=== PATIENT | male | born 1980 | race Caucasian/White ===

== ENCOUNTER 2023-01-13 01:53 | Emergency (ER) | payer BC, SELFPAY ==
[2023-01-13 01:54] VITALS: BP 122/78; PULSE 66; RESP 13; TEMP 36.4; O2SAT 100; BMI 23.1
--- NOTE | 2023-01-13 02:02 | EDS_ITS ---
HPI History of Present Illness Chief Complaint: General Illness [facility] Home Medications NK 01/13/23 [History Last Taken Unknown] Allergy/AdvReac Type Severity Reaction Status Date / Time No Known Allergies Allergy Verified 01/13/23 01:54 Social History Smoking Status: Current every day smoker tobacco type: smokeless tobacco EXAM Physical Exam Const Vital Signs: 01/13/23 01:54 01/13/23 01:57 01/13/23 02:21 Temperature 97.6 F L Temperature Source Oral Pulse Rate 66 Respiratory Rate 13 Respiratory Effort Normal Non-Labored Respiratory Pattern Normal Blood Pressure 122/78 H Blood Pressure Mean 92 Pulse Ox 100 96 Oxygen Delivery Method Room Air Room Air MDM MDM MDM Narrative Medical decision making narrative: HISTORY OF PRESENT ILLNESS: 42-year-old male here with cute onset of dizziness lightheadedness just prior to arrival. Notes he felt dizzy sweaty felt numbness in bilateral upper extremities as well as a tight throat. He notes he got up to use the bathroom. States he was in the act of performing a bowel movement when he got lightheaded dizzy started feeling sweaty and shaky. This was transient and has since resolved. He denies any focal weakness. Denies any current chest pain or shortness of breath. Denies any bleeding diathesis or volume loss such as vomiting or diarrhea. The patient denies recent surgery in the last 4 weeks or immobilization in the last 3 days, denies previous diagnosis of DVT or PE, hemoptysis, unilateral leg swelling or malignancy with treatment the last 6 months. No estrogen use noted. Patient denies sudden onset of pain, no tearing sensation, no migratory symptoms, no new numbness, weakness or loss of sens ation. Patient denies family history or personal history of Connective tissue disorders (Marfan's Syndrome, David Danlos etc) REVIEW OF SYSTEMS: Pertinent positives: Dizziness, lightheadedness, numbness Pertinent negatives: Focal weakness PHYSICAL EXAM: Nursing triage notes reviewed, Vital signs reviewed Constitutional: please see mdm HENT: MMM Eyes: Pupils equal round and reactive to light, Extraocular muscles intact Neck: No stridor, no JVD, full neck ROM Lungs: Clear to auscultation, No wheezing or rales. No increased work of breathing, no conversational dyspnea, no accessory muscle use, no nasal flaring. No respiratory distress noted Heart: Regular rate and rhythm, No murmurs, No rubs and No gallops, 2+ distal pulses (radial, femoral, posterior tibial) in all extremities Abdomen: Soft, there is no tenderness, rigidity, rebound or guarding, no obvious peritoneal signs, no palpable pulsatile abdominal masses, no auscultated abdominal bruit : No CVAT Extremities: No edema Neuro: Alert and oriented x3, neuro exam at baseline, cranial nerves II through XII are intact. No pain with extraocular muscle movement. There is negative test of skew. Normal speech. 5 of 5 strength in upper and lower extremities in flexion extension. Intact sensation to light touch in upper and lower extremity dermatomes. No truncal or extremity ataxia. No dysdiadochokinesia. Normal gait. 2+ reflexes. No meningeal signs. Negative Babinski. NIH of 0 Skin: No rash or lesions noted MEDICAL DECISION MAKING: Chief Complaint: Dizziness External records reviewed: No recent ED visits Factors affecting care: none Social determinants of health: none History obtained from others: none Consults: none ALL IMAGES (IF OBTAINED) HAVE BEEN PERSONALLY REVIEWED AND INTERPRETED BY MYSELF. EKG with normal sinus rhythm, normal axis, normal intervals, no STEMI Chest x-ray was read and reviewed by myself shows no evidence of pneumothorax, pneumonia or other cardiopulmonary abnormality. CBC without leukocytosis, severe anemia, no thrombocytopenia. BMP without evidence of significant electrolyte abnormalities, no anion gap, no acute kidney injury. Troponin negative x2 MDM Narrative: Patient was hemodynamically stable, afebrile, nontoxic-appearing. I considered the following differential diagnosis: Vasovagal syncope, arrhythmia, anemia, ACS, PE, dissection Clinical history most consistent with vasovagal syncope. I did obtain an EKG and labs to rule out other causes of significant decreased perfusion such as anemia, electrolyte abnormalities ACS or arrhythmia. EKG, high-sensitivity troponins (x2) were negative for evidence of myocardial ischemia. There is no significant anemia or electrolyte abnormalities. The patient likely suffered a vasovagal event. Given strict return precautions and follow-up instructions. The patient and/or family, caregivers express understanding. The patient and/or family, caregivers agrees with the plan. Shared decision making: I will have a discussion with the patient and or visitors regarding risk/benefits of further testing or admission. They will be made aware of of the risk/benefits inherent in this decision they will be given the opportunity to voice understanding. Total critical care time today provided was at least 0 [] minutes. This excludes separately billable procedures. Critical care time (if documented) is secondary to the patient having high probability of clinically significant/life threatening deterioration in the patient's condition which required my urgent intervention. Impression: 1. Near syncope 2. Vagal reaction Dispo: disCharge Lab Data Labs: Laboratory Results - last 24 hr 01/13/23 01/13/23 02:00 04:55 WBC 7.3 RBC 4.59 L Hgb 14.4 Hct 42.6 MCV 92.8 MCH 31.4 MCHC 33.8 RDW Std Deviation 40.8 RDW Coeff of Shane 11.9 Plt Count 238 MPV 9.3 Immature Gran % (Auto) 0.300 Neut % (Auto) 44.0 L Lymph % (Auto) 37.8 [place] % (Auto) 11.9 H Eos % (Auto) 5.2 H Baso % (Auto) 0.8 Absolute Neuts (auto) 3.2 Absolute Lymphs (auto) 2.76 Nucleated RBC % 0 Sodium 139 Potassium 3.7 Chloride 105 Carbon Dioxide 26.0 Anion Gap 8 BUN 15 Creatinine 1.38 H Estim Creat Clear Calc 81.30 Est GFR (MDRD) Af Amer 73 Est GFR (MDRD) Non-Af 60 BUN/Creatinine Ratio 10.9 Glucose 113 H Calcium 9.3 Troponin I High Sens < 3 L < 3 L Radiography Diagnostic Testing: Clinical Impression(s) from Imaging Studies Chest X-Ray 01/13/23 02:21 IMPRESSION: COPD Electronically Signed: Dann Torres MD at 3:30 EDT , Discharge Plan Triage Chief Complaint: General Illness ED Provider: Rick Lopez Dx/Rx/DC Orders Prescriptions: No Action NK Primary Care Provider: Care Physician,No Primary Referrals: [facility] Doctor,Out of [Non-Staff] -
[2023-01-13 02:21] VITALS: O2SAT 96
--- NOTE | 2023-01-13 02:21 | RAD_ITS ---
INDICATION: chest pain EXAMINATION/TECHNIQUE: X-RAY - XR Chest 1 View COMPARISON: None. FINDINGS: LINES/DEVICES: None. LUNGS: Hyperexpanded lungs. No pulmonary edema or focal airspace consolidation. No sizable pleural effusion. No pneumothorax detected. MEDIASTINUM AND CARDIOVASCULAR STRUCTURES: Heart size within normal limits. Mediastinal contours unremarkable. BONES AND SOFT TISSUES: No acute findings. RAD/Chest 1 View (Portable) IMPRESSION: COPD Electronically Signed: Dann Torres MD at 3:30 EDT ,
--- NOTE | 2023-01-13 02:21 | EKG12_ITS ---
Test Reason : DYSRHYTHMIA Blood Pressure : / mmHG Vent. Rate : 060 BPM Atrial Rate : 060 BPM P-R Int : 164 ms QRS Dur : 094 ms QT Int : 406 ms P-R-T Axes : 069 090 073 degrees QTc Int : 406 ms Normal sinus rhythm Rightward axis Borderline ECG Confirmed by CAT PYLE, MIKE ([id number]), news assignment editor MARLY TOTH ([id number]) on 01/15/2023 1:30:49 PM Referred By: TITO Confirmed By:MIKE SHELTON MD
[2023-01-13 02:33] LABS: Absolute Lymphocyte Count 2.76 X10^3/uL (0.83-4.51); Absolute Neutrophil Count 3.2 X10^3/uL (2.0-7.7); Basophil# 0.06 X10^3/uL; Basophil% 0.8 % (0-1); Eosinophil# 0.38 X10^3/uL; Eosinophils% 5.2 % (0-5); Hematocrit 42.6 % (40-54); Hemoglobin 14.4 g/dL (13.0-16.5); Lymphocyte # 2.76 X10^3/ul (0.83-4.51); Lymphocyte % 37.8 % (19-41); Mean Corp Hgb Conc 33.8 g/dL (32-36); Mean Corpuscular Hgb 31.4 pg (27.0-32.0); Mean Corpuscular Volume 92.8 fL (80-94); Mean Platelet Vol. 9.3 fl (6.2-12.0); Monocyte# 0.87 X10^3/uL; Monocyte% 11.9 % (0-10); NRBC Flagged by Analyzer 0 % (0-5); Neutrophil # 3.22 X10^3/uL (2.7-7.7); Platelet Count 238 K/mm3 (150-450); RBC Distribution Width CV 11.9 % (11.6-14.6); RBC Distribution Width SD 40.8 fl (35.1-43.9); Red Blood Count 4.59 M/mm3 (4.6-6.2); White Blood Count 7.3 K/mm3 (4.4-11.0)
[2023-01-13] MEDS: 0.9% Normal Saline (1000mL) 1,000 ML 999 ML IV (02:38)
[2023-01-13 02:55] LABS: Anion Gap 8 (5-15); BUN 15 mg/dL (7-18); BUN/Creat Ratio 10.9 RATIO (10-20); Calcium,Total 9.3 mg/dL (8.5-10.1); Chloride 105 mmol/L (98-107); Creatinine, Serum 1.38 mg/dL (0.70-1.30); EST Glomerular Filtration Rate 60 mL/min (>60); Est Glom Filt Rate - Afr Amer 73 mL/min (>60); Glucose 113 mg/dL (74-106); Potassium 3.7 mmol/L (3.5-5.1); Sodium Level 139 mmol/L (136-145); Troponin-I HS (w/2H Reflex) < 3 pg/mL (3.0-78.0)
[2023-01-13 04:31] LABS: Reflex Troponin-HS? (from REC) Y
[2023-01-13 05:28] LABS: Troponin-I HS < 3 pg/mL (3.0-78.0)
[2023-01-13 05:48] VITALS: BP 101/74; PULSE 57; RESP 16; O2SAT 97
== END 2023-01-13 05:53 | disposition home or self-care (01) ==
PROVIDERS: Emergency Provider Emergency Medicine; Visit Provider Emergency Medicine
DX: R55 Syncope and collapse (principal); F17.220 Nicotine dependence, chewing tobacco, uncomplicated
CPT/HCPCS: 36415; 71045; 80048; 84484; 85025; 93005; 96360; 99283; J7030; A4216